=== PATIENT | female | born 1950 | race Caucasian/White ===

== ENCOUNTER 2017-06-13 15:16 | Emergency (ER) | payer MEDICARE, OTHER ==
[2017-06-13 16:05] VITALS: BP 145/59
--- NOTE | 2017-06-13 16:31 | UC ---
Hand/Wrist HPI - HPI Summary HPI Summary: Patient presents with complaints of nontraumatic right wrist pain onset two days. She states the pain occurs when she moves her thumb or flexes or extends the wrist. She states that they is some swelling on the inside of the wrist. She denies any repetitive movements, injury, trauma, warmth, fever of chills. She describes the pain as aching and more sharp with movement. States the pain radiates up the forearm at times as well. Denies any numbnes or tingling. - History Of Current Complaint Hx Obtained From: Patient ?: No Onset/Duration: Gradual Onset, Lasting Days Severity Currently: Moderate Character Of Pain: Sharp, Aching Aggravating Factor(s): Movement, Flexion, Extension Alleviating Factor(s): Rest Associated Signs And Symptoms: Positive: Swelling - Risk Factors Compartment Syndrome Risk Factors: Pain <Essence Bah - Last Filed: 06/13/17 16:36> <Heather Jane - Last Filed: 06/13/17 16:57> - History Of Current Complaint Chief Complaint: UCUpperExtremity Stated Complaint: WRIST INJURY Time Seen by Provider: 06/13/17 16:12 - Allergies/Home Medications Allergies/Adverse Reactions: Allergies Allergy/AdvReac Type Severity Reaction Status Date / Time No Known Allergies Allergy Verified 06/13/17 16:05 PMH/Surg Hx/FS Hx/Imm Hx Previously Healthy: Yes - Surgical History Surgical History: Yes Surgery Procedure, Year, and Place: TOTAL HYSTERECTOMY, CARDIAC STENTS x3, csection - Family History Known Family History: Positive: None - Social History Occupation: Retired Lives: Alone Alcohol Use: None Substance Use Type: None Smoking Status (MU): Light Every Day Tobacco Smoker - Immunization History Most Recent Influenza Vaccination: 2012 Most Recent Tetanus Shot: 2004 Most Recent Pneumonia Vaccination: 2012 <Essence Bah - Last Filed: 06/13/17 16:36> Review of Systems Constitutional: Negative Skin: Negative Eyes: Negative ENT: Negative Respiratory: Negative Cardiovascular: Negative Gastrointestinal: Negative Genitourinary: Negative Motor: Negative Neurovascular: Negative Musculoskeletal: Arthralgia, Decreased ROM, Edema, Myalgia Neurological: Negative Psychological: Negative All Other Systems Reviewed And Are Negative: Yes <Essence Bah - Last Filed: 06/13/17 16:36> Physical Exam Triage Information Reviewed: Yes Appearance: Well-Appearing Vital Signs: Initial Vital Signs Temp 97.5 F 06/13/17 16:01 Pulse 61 06/13/17 16:01 Resp 12 06/13/17 16:01 BP 145/59 06/13/17 16:01 Pulse Ox 100 06/13/17 16:01 Vital Signs Reviewed: Yes Eye Exam: Normal ENT Exam: Normal Neck exam: Normal Neck: Positive: 1 Respiratory Exam: Normal Cardiovascular Exam: Normal Abdominal Exam: Normal Musculoskeletal Exam: Normal - right wrist inspection, soft tissue swelling noted medal distal radius. Palpation, tenderness on palpation over the medial Musculoskeletal: Positive: Strength Limited @, ROM Limited @, Edema @, Other: - inspection, soft tissue swelling noted over the distal radial head, tenderness on palpation overthe extensor pollicis brevis tendon and the abductor pollicis longus tendon. rom intact with reproducible pain with flexion, extension, negative snuff box. vascular + radial and ulnar pulses, cap refill less than three seconds. neuro, no dificits. Neurological Exam: Normal Psychological Exam: Normal Skin Exam: Normal <Essence Bah - Last Filed: 06/13/17 16:36> Vital Signs: Initial Vital Signs Temp 97.5 F 06/13/17 16:01 Pulse 61 06/13/17 16:01 Resp 12 06/13/17 16:01 BP 145/59 06/13/17 16:01 Pulse Ox 100 06/13/17 16:01 <Heather Jane - Last Filed: 06/13/17 16:57> Hand/Wrist Course/Dx - Course Course Of Treatment: Patient presents witn complaints of nontraumatic right wrist pain, swelling and tenderness over the tendons consistent with dequavain tendonitis. Patient had no injury or trauma and I did not feel xrays were indicated and did discuss options with the patient and she was in agreement. I do not feel the patient has a septic joint, it is not warm to touch and the patient does not have a fever. I did rx medrol dose pack, and placed her in a thumb spica. I also recommend that if her symptoms do not improve in two days, and if for any reason her symtpoms get worse to see the orthopedist or return to the clinic for re-evaluation. - Differential Dx/Diagnosis Differential Diagnosis/HQI/PQRI: Tendonitis Provider Diagnoses: tendonitis <Essence Bah - Last Filed: 06/13/17 16:36> Discharge <Essence Bah - Last Filed: 06/13/17 16:36> <Heather Jane - Last Filed: 06/13/17 16:57> - Discharge Plan Condition: Stable Disposition: HOME Prescriptions: Methylprednisolone [Medrol Dosepak 4 MG*] 0 mg PO .SEE ANA INSTRUCTION #1 tab Patient Education Materials: Tendinitis (ED) Referrals: Dany Hunter MD [Medical Doctor] - Maame Montaño NP [Primary Care Provider] - Additional Instructions: You need to call the orthopedist and follow up in two days if your symptoms persist beyond two days, sooner if your symptoms get worse. Attestation Statement User Type: Provider - I was available for consult. This patient was seen by the [facility]. The patient was not presented to, seen by, or examined by me. -Marina <Heather Jane - Last Filed: 06/13/17 16:57>
== END 2017-06-13 16:51 | disposition home or self-care (01) ==
LOC: UCEAST 15:16
DX: M77.9 Enthesopathy, unspecified (principal); F17.200 Nicotine dependence, unspecified, uncomplicated
CPT/HCPCS: 99213; G0463

== ENCOUNTER 2018-12-18 19:37 | Emergency (ER) | payer OTHER, MEDICARE ==
[2018-12-18 20:54] LABS: ABS Basophils 0.1 10^3/ul (0-0.2); ABS Eosinophils 0.4 10^3/ul (0-0.6); ABS Lymphocytes 3.3 10^3/ul (1.0-4.8); ABS Monocytes 1.2 10^3/ul (0-0.8); Eosinophil % 2.9 %; Hematocrit 44 % (35-47); Hemoglobin 15.2 g/dL (12.0-16.0); Lymphocyte % 25.5 %; Mean Corpuscular HGB Conc 34 g/dL (31-36); Mean Corpuscular Hemoglobin 33 pg (27-31); Mean Corpuscular Volume 95 fL (80-97); Mean Platelet Volume 7.5 fL (7.4-10.4); Platelet Count 278 10^3/uL (150-450); Red Blood Count 4.65 10^6 /uL (3.70-4.87); Red Cell Distribution Width 15 % (10.5-15); White Blood Count 13.1 10^3/uL (3.5-10.8)
[2018-12-18 21:11] LABS: Albumin 4.4 g/dL (3.2-5.2); Albumin/Globulin Ratio 1.5 (1-3); BUN/Creatinine Ratio 17.4 (8-20); Calcium 9.6 mg/dL (8.6-10.3); EGFR African American 79.9 (>60); Total Bilirubin 0.5 mg/dL (0.2-1.0); Total Protein 7.4 g/dL (6.4-8.9)
[2018-12-18 21:53] LABS: Potassium 3.6 mmol/L (3.5-5.0)
[2018-12-18 22:15] LABS: Rapid Strep Molecular Negative (Negative)
[2018-12-18] MEDS ORDERED: Benzonatate CAP* 100 MG PO ONE (22:24)
[2018-12-18 22:25] LABS: Influenza A Molecular NEGATIVE (Negative); Influenza B Molecular NEGATIVE (Negative)
[2018-12-18] MEDS ORDERED: Azithromycin TAB* 250 MG PO ONE (22:27)
--- NOTE | 2018-12-18 22:28 | ED ---
Throat Pain/Nasal Congestion - HPI Summary HPI Summary: Patient complains of sore throat, bilateral ear pain, cough, shortness of breath after coughing spell, body aches 2 weeks. Patient states she took Tylenol this a.m. Denies fever, headache, neck stiffness, CP, N/V/D, abdominal pain, change in urine, change in BM, nasal congestion. She on Plavix. - History of Current Complaint Chief Complaint: EDGeneral Time Seen by Provider: 12/18/18 21:42 Hx Obtained From: Patient Onset/Duration: Gradual Onset, Lasting Weeks Severity: Moderate Associated Signs And Symptoms: Positive: Negative Cough: Nonproductive - Allergies/Home Medications Allergies/Adverse Reactions: Allergies Allergy/AdvReac Type Severity Reaction Status Date / Time No Known Allergies Allergy Verified 12/18/18 19:44 PMH/Surg Hx/FS Hx/Imm Hx Endocrine/Hematology History: Denies: Hx Diabetes, Hx Thyroid Disease Cardiovascular History: Reports: Hx Angina, Hx Coronary Artery Disease, Hx Hypercholesterolemia, Hx Hypertension, Hx Rheumatic Fever Denies: Hx Congestive Heart Failure, Hx Myocardial Infarction, Hx Valvular Heart Disease, Other Cardiovascular Problems/Disorders Respiratory History: Reports: Hx Chronic Bronchitis, Other Respiratory Problems/ Disorders - smoker Denies: Hx Asthma, Hx Chronic Obstructive Pulmonary Disease (COPD) GI History: Reports: Hx Gastroesophageal Reflux Disease Denies: Other GI Disorders History: Denies: Hx Renal Disease, Other Problems/Disorders Musculoskeletal History: Reports: Hx Osteoporosis Sensory History: Reports: Hx Contacts or Glasses Opthamlomology History: Reports: Hx Contacts or Glasses - Cancer History Hx Chemotherapy: No Hx Radiation Therapy: No - Surgical History Surgery Procedure, Year, and Place: TOTAL HYSTERECTOMY, CARDIAC STENTS x3, csection Hx Anesthesia Reactions: No - Immunization History Date of Tetanus Vaccine: <10yrs Date of Influenza Vaccine: Fall 2012 Infectious Disease History: No Infectious Disease History: Denies: Traveled Outside the [place] in Last 30 Days - Family History Known Family History: Positive: None - Social History Alcohol Use: None Substance Use Type: Reports: None Smoking Status (MU): Light Every Day Tobacco Smoker Review of Systems Constitutional: Negative Eyes: Negative Positive: Sore Throat, Ear Ache Cardiovascular: Negative Positive: Cough Gastrointestinal: Negative Genitourinary: Negative Positive: Myalgia Skin: Negative Neurological: Negative Psychological: Normal All Other Systems Reviewed And Are Negative: Yes Physical Exam - Summary Physical Exam Summary: ENT exam unremarkable. Lung sounds clear to auscultation bilaterally. RRR. Abdomen soft nontender. Triage Information Reviewed: Yes Vital Signs On Initial Exam: Initial Vitals Temp Pulse Resp BP Pulse Ox 98.8 F 52 18 186/76 96 12/18/18 19:42 12/18/18 19:42 12/18/18 19:42 12/18/18 19:42 12/18/18 19:42 Vital Signs Reviewed: Yes Appearance: Positive: Well-Appearing Skin: Positive: Warm Head/Face: Positive: Normal Head/Face Inspection Eyes: Positive: Normal ENT: Positive: Normal ENT inspection Neck: Positive: Supple Respiratory/Lung Sounds: Positive: Clear to Auscultation Cardiovascular: Positive: Normal Abdomen Description: Positive: Nontender Musculoskeletal: Positive: Normal Neurological: Positive: Normal Psychiatric: Positive: Normal AVPU Assessment: Alert - Calvin Coma Scale Best Eye Response: 4 - Spontaneous Best Motor Response: 6 - Obeys Commands Best Verbal Response: 5 - Oriented Coma Scale Total: 15 Diagnostics - Vital Signs Vital Signs Temp Pulse Resp BP Pulse Ox 12/18/18 22:16 98.8 F 56 22 163/60 98 12/18/18 19:42 98.8 F 52 18 186/76 96 - Laboratory Lab Results: Lab Results 12/18/18 12/18/18 12/18/18 Range/Units 20:46 20:46 Unknown WBC 13.1 H (3.5-10.8) 10^3/uL RBC 4.65 (3.70-4.87) 10^6 /uL Hgb 15.2 (12.0-16.0) g/dL Hct 44 (35-47) % MCV 95 (80-97) fL MCH 33 H (27-31) pg MCHC 34 (31-36) g/dL RDW 15 (10.5-15) % Plt Count 278 (150-450) 10^3/uL MPV 7.5 (7.4-10.4) fL Neut % (Auto) 61.4 % Lymph % (Auto) 25.5 % [place] % (Auto) 9.2 % Eos % (Auto) 2.9 % Baso % (Auto) 1.0 % Absolute Neuts (auto) 8.0 H (1.5-7.7) 10^3/ul Absolute Lymphs (auto) 3.3 (1.0-4.8) 10^3/ul Absolute Monos (auto) 1.2 H (0-0.8) 10^3/ul Absolute Eos (auto) 0.4 (0-0.6) 10^3/ul Absolute Basos (auto) 0.1 (0-0.2) 10^3/ul Absolute Nucleated RBC 0.0 10^3/ul Nucleated RBC % 0.0 Sodium 137 (135-145) mmol/L Potassium 3.6 (3.5-5.0) mmol/L Chloride 102 (101-111) mmol/L Carbon Dioxide 27 (22-32) mmol/L Anion Gap 8 (2-11) mmol/L BUN 15 (6-24) mg/dL Creatinine 0.86 (0.51-0.95) mg/dL Est GFR ( Amer) 79.9 (>60) Est GFR (Non-Af Amer) 66.0 (>60) BUN/Creatinine Ratio 17.4 (8-20) Glucose 94 (70-100) mg/dL Calcium 9.6 (8.6-10.3) mg/dL Total Bilirubin 0.50 (0.2-1.0) mg/dL AST 17 (13-39) U/L ALT 15 (7-52) U/L Alkaline Phosphatase 94 (34-104) U/L Total Protein 7.4 (6.4-8.9) g/dL Albumin 4.4 (3.2-5.2) g/dL Globulin 3.0 (2-4) g/dL Albumin/Globulin Ratio 1.5 (1-3) Influenza A (Rapid) Negative (Negative) Influenza B (Rapid) Negative (Negative) Group A Strep Rapid (Negative) 12/18/18 Range/Units Unknown WBC (3.5-10.8) 10^3/uL RBC (3.70-4.87) 10^6 /uL Hgb (12.0-16.0) g/dL Hct (35-47) % MCV (80-97) fL MCH (27-31) pg MCHC (31-36) g/dL RDW (10.5-15) % Plt Count (150-450) 10^3/uL MPV (7.4-10.4) fL Neut % (Auto) % Lymph % (Auto) % [place] % (Auto) % Eos % (Auto) % Baso % (Auto) % Absolute Neuts (auto) (1.5-7.7) 10^3/ul Absolute Lymphs (auto) (1.0-4.8) 10^3/ul Absolute Monos (auto) (0-0.8) 10^3/ul Absolute Eos (auto) (0-0.6) 10^3/ul Absolute Basos (auto) (0-0.2) 10^3/ul Absolute Nucleated RBC 10^3/ul Nucleated RBC % Sodium (135-145) mmol/L Potassium (3.5-5.0) mmol/L Chloride (101-111) mmol/L Carbon Dioxide (22-32) mmol/L Anion Gap (2-11) mmol/L BUN (6-24) mg/dL Creatinine (0.51-0.95) mg/dL Est GFR ( Amer) (>60) Est GFR (Non-Af Amer) (>60) BUN/Creatinine Ratio (8-20) Glucose (70-100) mg/dL Calcium (8.6-10.3) mg/dL Total Bilirubin (0.2-1.0) mg/dL AST (13-39) U/L ALT (7-52) U/L Alkaline Phosphatase (34-104) U/L Total Protein (6.4-8.9) g/dL Albumin (3.2-5.2) g/dL Globulin (2-4) g/dL Albumin/Globulin Ratio (1-3) Influenza A (Rapid) (Negative) Influenza B (Rapid) (Negative) Group A Strep Rapid Negative (Negative) Result Diagrams: 12/18/18 20:46 12/18/18 20:46 Lab Statement: Any lab studies that have been ordered have been reviewed, and results considered in the medical decision making process. EENT Course/Dx - Course Course Of Treatment: Patient complains of sore throat, bilateral ear pain, cough , shortness of breath after coughing spell, body aches 2 weeks. Patient states she took Tylenol this a.m. Denies fever, headache, neck stiffness, CP, N /V/D, abdominal pain, change in urine, change in BM, nasal congestion. She on Plavix. Physical exam: ENT exam unremarkable. Lung sounds clear to auscultation bilaterally. RRR. Abdomen soft nontender. Vital signs within normal limits. WBC 13.1. Labs otherwise unremarkable. Chest x-ray negative for acute process. Flu negative. Strep negative. Patient likely has viral syndrome, but patient has had symptoms for 2 weeks. Trial of antibiotics to prevent secondary bacterial infection. - Diagnoses Provider Diagnoses: Respiratory tract infection Discharge - Sign-Out/Discharge Documenting (check all that apply): Patient Departure Patient Received Moderate/Deep Sedation with Procedure: No - Discharge Plan Condition: Stable Disposition: HOME Prescriptions: Azithromycin 250 mg PO DAILY 4 Days #4 tablet Benzonatate CAP* [Tessalon 100 MG CAP*] 200 mg PO TID 6 Days #40 cap Patient Education Materials: Upper Respiratory Infection (ED) Referrals: Maame Montaño [employer] CHUTE OPERATOR [Primary Care Provider] - Additional Instructions: Take antibiotics as directed. Take cough medicine as prescribed. Take Tylenol or ibuprofen for body aches. Follow-up with primary care. Return to the ED for any new or worsening symptoms. - Billing Disposition and Condition Condition: STABLE Disposition: Home
[2018-12-18 22:36] VITALS: BP 161/60
== END 2018-12-18 22:35 | disposition home or self-care (01) ==
LOC: ED 19:37
DX: J98.8 Other specified respiratory disorders (principal); I10 Essential (primary) hypertension; I25.10 Atherosclerotic heart disease of native coronary artery without angina pectoris; J42 Unspecified chronic bronchitis; K21.9 Gastro-esophageal reflux disease without esophagitis; E78.00 Pure hypercholesterolemia, unspecified; M81.0 Age-related osteoporosis without current pathological fracture; F17.210 Nicotine dependence, cigarettes, uncomplicated; Z95.5 Presence of coronary angioplasty implant and graft
CPT/HCPCS: 36415; 71046; 80053; 85025; 87651; 99283; A9270-GY

== ENCOUNTER 2019-02-04 17:19 | Observation (INO) | payer OTHER, MEDICARE ==
[2019-02-04 18:02] LABS: ABS Basophils 0.1 10^3/ul (0-0.2); ABS Eosinophils 0.3 10^3/ul (0-0.6); ABS Lymphocytes 3.7 10^3/ul (1.0-4.8); ABS Monocytes 0.9 10^3/ul (0-0.8); ABS Neutrophils 7.1 10^3/ul (1.5-7.7); Eosinophil % 2.3 %; Hematocrit 46 % (35-47); Hemoglobin 15.3 g/dL (12.0-16.0); Lymphocyte % 30.8 %; Mean Corpuscular HGB Conc 33 g/dL (31-36); Mean Corpuscular Hemoglobin 32 pg (27-31); Mean Corpuscular Volume 96 fL (80-97); Mean Platelet Volume 7.3 fL (7.4-10.4); Nucleated Red Blood Cells % 0.1; Platelet Count 270 10^3/uL (150-450); Red Cell Distribution Width 15 % (10-15)
[2019-02-04 18:06] LABS: INR 0.98 (0.82-1.09)
[2019-02-04 18:20] LABS: Albumin 4.2 g/dL (3.2-5.2); Albumin/Globulin Ratio 1.5 (1-3); BUN/Creatinine Ratio 25.9 (8-20); Calcium 9.5 mg/dL (8.6-10.3); EGFR African American 85.6 (>60); EGFR Non-African American 70.7 (>60); Globulin 2.8 g/dL (2-4); Potassium 3.6 mmol/L (3.5-5.0); Total Bilirubin 0.4 mg/dL (0.2-1.0)
[2019-02-04] MEDS ORDERED: Iohexol 350* (CONTRAST) 500 ML MDV IV ONE (18:37)
[2019-02-04] MEDS ORDERED: Morphine 4 MG/ML VIAL (1 ml) 4 MG/ML VIAL IV ONE (20:07)
[2019-02-04] MEDS ORDERED: NS 0.9% 1000 ML** 1,000 ML IV ONE (20:07)
[2019-02-04] MEDS ORDERED: hydrALAZINE IV* 20 MG/ML VIAL IV SLOW PU ONE (20:19)
--- NOTE | 2019-02-04 20:44 | ED ---
HPI Chest Pain - HPI Summary HPI Summary: Patient complains of left-sided chest pain radiating to her back between her shoulder blades, elevated blood pressure up to SBP 200, severe headache, mild exertional shortness of breath starting today. Chest pain described as intermittent, random onset, not related to exertion. Active chest pain here in ED rated 2/10. History of headaches, states this headache is same as usual, but not responding to Tylenol. Headaches usually relieved with Tylenol. Headache described as intermittent. Denies fever, cough, sore throat, neck stiffness, N/V/D, abdominal pain, change in urine, change in BM. Patient states recent stress test [address] Gonzales. Patient unaware of stress test results. Patient on Plavix. Medical history is angina, HTN, HDL, factor V. History of 3 cardiac stents placed in 2009. Positive smoker, denies EtOH, denies energy drinks, excessive coffee or recreational drug use. - History of Current Complaint Chief Complaint: EDChestPainROMI Time Seen by Provider: 02/04/19 17:47 Hx Obtained From: Patient Onset/Duration: Started Hours Ago Timing: Intermittent Current Severity: Mild Pain Intensity: 2 Pain Scale Used: 0-10 Numeric Chest Pain Location: Left Anterior Chest Pain Radiates: Yes Chest Pain Radiates To:: Back Character: Pressure/Squeezing Aggravating Factor(s): Nothing Alleviating Factor(s): Nothing Associated Signs and Symptoms: Positive: Chest Pain, Shortness of Breath, Back Pain - Allergy/Home Medications Allergies/Adverse Reactions: Allergies Allergy/AdvReac Type Severity Reaction Status Date / Time No Known Allergies Allergy Verified 02/04/19 17:25 Home Medications: Home Medications Lisinopril/HCTZ (NF) 1 tab PO DAILY 02/04/19 [History Confirmed 02/04/19] Metoprolol Tartrate 25 mg PO BID 02/04/19 [History Confirmed 02/04/19] Nitrolingual 0.4 mg PO SEE INSTRUCTIONS PRN 02/04/19 [History Confirmed 02/04/19 ] PMH/Surg Hx/FS Hx/Imm Hx Endocrine/Hematology History: Denies: Hx Diabetes, Hx Thyroid Disease Cardiovascular History: Reports: Hx Angina, Hx Coronary Artery Disease, Hx Hypercholesterolemia, Hx Hypertension, Hx Rheumatic Fever Denies: Hx Congestive Heart Failure, Hx Myocardial Infarction, Hx Valvular Heart Disease, Other Cardiovascular Problems/Disorders Respiratory History: Reports: Hx Chronic Bronchitis, Other Respiratory Problems/ Disorders - smoker Denies: Hx Asthma, Hx Chronic Obstructive Pulmonary Disease (COPD) GI History: Reports: Hx Gastroesophageal Reflux Disease Denies: Other GI Disorders History: Denies: Hx Renal Disease, Other Problems/Disorders Musculoskeletal History: Reports: Hx Osteoporosis Sensory History: Reports: Hx Contacts or Glasses Opthamlomology History: Reports: Hx Contacts or Glasses EENT History: Denies: Hx Deafness Neurological History: Reports: Hx Headaches Psychiatric History: Denies: Hx Autism - Cancer History Hx Chemotherapy: No Hx Radiation Therapy: No - Surgical History Surgery Procedure, Year, and Place: TOTAL HYSTERECTOMY, CARDIAC STENTS x3, csection Hx Anesthesia Reactions: No - Immunization History Date of Tetanus Vaccine: <10yrs Date of Influenza Vaccine: Fall 2012 Infectious Disease History: No Infectious Disease History: Denies: Traveled Outside the [place] in Last 30 Days - Family History Known Family History: Positive: None - Social History Alcohol Use: None Substance Use Type: Reports: None Smoking Status (MU): Light Every Day Tobacco Smoker Review of Systems Constitutional: Negative Eyes: Negative Positive: Chest Pain Positive: Shortness Of Breath Gastrointestinal: Negative Genitourinary: Negative Musculoskeletal: Negative Skin: Negative Positive: Headache Psychological: Normal All Other Systems Reviewed And Are Negative: Yes Physical Exam - Summary Physical Exam Summary: Neuro exam normal. Chest pain not reproducible. Lung sounds clear to auscultation bilaterally. Regular rate and rhythm. Abdomen soft nontender. No peripheral edema. Triage Information Reviewed: Yes Vital Signs On Initial Exam: Initial Vitals Temp Pulse Resp BP Pulse Ox 98.2 F 63 16 230/114 94 02/04/19 17:22 02/04/19 17:22 02/04/19 17:22 02/04/19 17:22 02/04/19 17:22 Vital Signs Reviewed: Yes Appearance: Positive: Well-Appearing, No Pain Distress Skin: Positive: Warm Head/Face: Positive: Normal Head/Face Inspection Eyes: Positive: Normal ENT: Positive: Normal ENT inspection Neck: Positive: Supple Respiratory/Lung Sounds: Positive: Clear to Auscultation Cardiovascular: Positive: Normal Abdomen Description: Positive: Nontender Musculoskeletal: Positive: Normal Neurological: Positive: Normal Psychiatric: Positive: Normal AVPU Assessment: Alert - [place] Coma Scale Best Eye Response: 4 - Spontaneous Best Motor Response: 6 - Obeys Commands Best Verbal Response: 5 - Oriented Coma Scale Total: 15 Diagnostics - Vital Signs Vital Signs Temp Pulse Resp BP Pulse Ox 02/04/19 20:00 56 16 91 02/04/19 19:49 54 21 204/88 95 02/04/19 19:19 51 191/74 95 02/04/19 19:00 15 02/04/19 18:19 56 17 209/98 95 02/04/19 18:00 54 21 92 02/04/19 17:50 53 203/83 93 02/04/19 17:49 53 94 02/04/19 17:22 98.2 F 63 16 230/114 94 - Laboratory Lab Results: Lab Results 02/04/19 02/04/19 02/04/19 Range/Units 17:47 17:47 17:47 WBC 12.0 H (3.5-10.8) 10^3/uL RBC 4.80 (3.70-4.87) 10^6 /uL Hgb 15.3 (12.0-16.0) g/dL Hct 46 (35-47) % MCV 96 (80-97) fL MCH 32 H (27-31) pg MCHC 33 (31-36) g/dL RDW 15 (10-15) % Plt Count 270 (150-450) 10^3/uL MPV 7.3 L (7.4-10.4) fL Neut % (Auto) 58.7 % Lymph % (Auto) 30.8 % [place] % (Auto) 7.4 % Eos % (Auto) 2.3 % Baso % (Auto) 0.8 % Absolute Neuts (auto) 7.1 (1.5-7.7) 10^3/ul Absolute Lymphs (auto) 3.7 (1.0-4.8) 10^3/ul Absolute Monos (auto) 0.9 H (0-0.8) 10^3/ul Absolute Eos (auto) 0.3 (0-0.6) 10^3/ul Absolute Basos (auto) 0.1 (0-0.2) 10^3/ul Absolute Nucleated RBC 0.0 10^3/ul Nucleated RBC % 0.1 INR (Anticoag Therapy) 0.98 (0.82-1.09) Sodium 137 (135-145) mmol/L Potassium 3.6 (3.5-5.0) mmol/L Chloride 105 (101-111) mmol/L Carbon Dioxide 23 (22-32) mmol/L Anion Gap 9 (2-11) mmol/L BUN 21 (6-24) mg/dL Creatinine 0.81 (0.51-0.95) mg/dL Est GFR ( Amer) 85.6 (>60) Est GFR (Non-Af Amer) 70.7 (>60) BUN/Creatinine Ratio 25.9 H (8-20) Glucose 95 (70-100) mg/dL Calcium 9.5 (8.6-10.3) mg/dL Total Bilirubin 0.40 (0.2-1.0) mg/dL AST 15 (13-39) U/L ALT 17 (7-52) U/L Alkaline Phosphatase 83 (34-104) U/L Troponin I 0.00 (<0.04) ng/mL Total Protein 7.0 (6.4-8.9) g/dL Albumin 4.2 (3.2-5.2) g/dL Globulin 2.8 (2-4) g/dL Albumin/Globulin Ratio 1.5 (1-3) Result Diagrams: 02/05/19 06:08 02/05/19 06:08 Lab Statement: Any lab studies that have been ordered have been reviewed, and results considered in the medical decision making process. Chest Pain Course/Dx - Course Course Of Treatment: Patient complains of left-sided chest pain radiating to her back between her shoulder blades, elevated blood pressure up to SBP 200, severe headache, mild exertional shortness of breath starting today. Chest pain described as intermittent, random onset, not related to exertion. Active chest pain here in ED rated 2/10. History of headaches, states this headache is same as usual, but not responding to Tylenol. Headaches usually relieved with Tylenol. Headache described as intermittent. Denies fever, cough, sore throat, neck stiffness, N/V/D, abdominal pain, change in urine, change in BM. Patient states recent stress test [address] Gonzales. Patient unaware of stress test results. Patient on Plavix. Medical history is angina, HTN, HDL, factor V. History of 3 cardiac stents placed in 2009. Positive smoker, denies EtOH, denies energy drinks, excessive coffee or recreational drug use. Physical exam:Neuro exam normal. Chest pain not reproducible. Lung sounds clear to auscultation bilaterally. Regular rate and rhythm. Abdomen soft nontender. No peripheral edema. Patient took aspirin prior to arrival. Refused morphine here in the ED. Bradycardic. History of same. Elevated blood pressure up to 230 SBP. Vital signs otherwise within normal limits. WBC 12. BUN/creatinine ratio 25. Labs otherwise unremarkable. EKG sinus bradycardia. Chest x-ray unremarkable. CTA chest abdomen and pelvis unremarkable. Discussed patient with consumer credit counselor gas station clerk Dr. Gonzales who recommended admission for blood pressure control. Patient given hydralazine 5 mg and Nitropaste 2 inches here in the ED with minor change in BP. Admitted to hospitalist. - Diagnoses Provider Diagnoses: Chest pain, Hypertension Discharge - Sign-Out/Discharge Documenting (check all that apply): Patient Departure All imaging exams completed and their final reports reviewed: Yes Patient Received Moderate/Deep Sedation with Procedure: No - Discharge Plan Condition: Stable Disposition: ADMITTED TO [facility] - Billing Disposition and Condition Condition: STABLE Disposition: Admitted to [facility] - Attestation Statements Scribe Documentation Reviewed: Yes
[2019-02-04] MEDS ORDERED: Aspirin 81 mg CHEW TAB* 81 MG TAB.CHEW PO ONE (21:15)
[2019-02-04] MEDS ORDERED: Nitro 2% OINT* (Nitroglycerin) 1 INCH/PAK PAK TOPICAL ONE (21:15)
[2019-02-04] MEDS ORDERED: Aspirin 81 mg CHEW TAB* 81 MG TAB.CHEW PO PRN (21:38)
[2019-02-04] MEDS ORDERED: Al Hydrox/Mg Hydrox/Simet LIQ* 30 ML UDC PO PRN (21:41)
[2019-02-04] MEDS ORDERED: Morphine INJ* 2 MG/ML 1 ML SYRINGE (TWO MG - NEW SYRINGE VERSION) IV PRN (21:41)
[2019-02-04] MEDS ORDERED: Senna TAB PO PRN (21:41)
[2019-02-04] MEDS ORDERED: hydrALAZINE IV* 20 MG/ML VIAL IV SLOW PU PRN (21:45)
[2019-02-04] MEDS ORDERED: ALPRAZolam TAB* 0.25 MG PO ONE (22:08)
[2019-02-04] MEDS ORDERED: amLODIPine TAB* 5 MG PO ONE (22:17)
[2019-02-04] MEDS ORDERED: Ondansetron INJ* 2 MG/ML VIAL IV ONE ×2 (22:23)
[2019-02-04] MEDS ORDERED: Ondansetron ODT TAB* 4 MG PO ONE (22:23)
[2019-02-04] MEDS: Lisinopril TAB* 10 MG PO SCH (23:08)
[2019-02-04] MEDS: Metoprolol Tartrate TAB* 25 MG PO SCH (23:12)
--- NOTE | 2019-02-05 01:47 | HP ---
CC: Dr. Gonzales; Maame Montaño NP * HISTORY AND PHYSICAL: DATE OF ADMISSION: 02/04/19 PRIMARY CARE PROVIDER: Maame Montaño NP INDUSTRIAL MACHINE ASSEMBLER: Dr. Gonzales. CHIEF COMPLAINT: Chest pain. HISTORY OF PRESENT ILLNESS: Estella Robison is a 68-year-old female with history of carotid disease, status post 3 stents in 2010, who also has history of hypertension, dyslipidemia, and tobacco use, who presented to the hospital complaining of headache and substernal chest pain. The patient stated that headache has been ongoing for the past 2 days. She stated that it is frontal and it is the usual headache for her. The patient stated that she usually gets a frontal headache and then she feels sick in her stomach, she vomits, and usually the headache goes away. This time around, she had had headache for 2 days. When she was in the ED now, she became nauseated. Today, in the middle of the day, when she was sitting down, she noted that she had chest pain substernally across her chest radiating to the back and radiating to bilateral shoulders. She still has discomfort at this point. When in the ED, she was evaluated for cardiac problems and her troponins were negative. She continues to have very high blood pressures in the 200s. She is going to be placed on planned observation with diagnoses of chest pain and uncontrolled hypertension. PAST MEDICAL HISTORY: 1. History of carotid disease, status post 3 stents placed into the RCA [place] [address] Doran. 2. Hypertension. 3. History of rheumatic fever at the age of 14. 4. Hypercholesterolemia. 5. Ongoing tobacco use. 6. Gastroesophageal reflux disease. 7. . 8. Osteopenia. 9. Status post hysterectomy and oophorectomy. 10. . MEDICATIONS: At home, include: 1. Nitroglycerin sublingually which the patient took once in her life a long time ago. 2. Lisinopril/hydrochlorothiazide 20/25 one tablet daily. 3. Aspirin 81 mg daily. 4. Metoprolol tartrate 25 mg b.i.d. 5. Lipitor 80 mg daily. 6. Plavix 75 mg daily. ALLERGIES: No known drug allergies. The patient prefers not to use morphine because it makes her sick in the stomach. FAMILY HISTORY: Positive for father who secondary to liver disease but has history of 2 MIs prior to that. Mother with history of [place], in her 60s from heart disease. SOCIAL HISTORY: The patient lives with her male partner. Her surrogate decision making person is her daughter, Dorothy Robison. The patient smokes 4 to 5 cigarettes a day, denies any alcohol or drug use. She works in a convenient store. REVIEW OF SYSTEMS: Please see history of present illness. In addition, at the time of admission, the patient stated that she has good exercise tolerance, that she has had no problems with exertional chest pain in the past. She denies any cough or shortness of breath. She still has the discomfort between her shoulder blades. The discomfort is not pleuritic. She has a frontal headache which she has had in the past. Currently, she rates it at 3/10 in intensity. She has mild nausea. She denies any visual problems and her headache is not unusual for her. She denies any focal neuro deficits. All the remaining 12 systems was reviewed with the patient and was negative. PHYSICAL EXAMINATION GENERAL: The patient is a pleasant 68-year-old female, who is in no acute distress. Alert, awake, and oriented x3. VITAL SIGNS: Blood pressure of 205/77, heart rate of 60 and regular, respiratory rate 25, oxygen saturation 93% on room air, temperature of 98.2. HEENT: Head: Atraumatic, normocephalic. Eyes: Pupils are equal, reactive to light and accommodation. Oropharynx clear. Mucosa moist. NECK: Supple. No JVD, no bruits bilaterally. CARDIOVASCULAR: Regular rate and rhythm. No murmur. RESPIRATORY: Clear to auscultation bilaterally. ABDOMEN: Soft, nontender. Bowel sounds are present in all 4 quadrants. EXTREMITIES: There is no edema. Pulses are +2 bilaterally. No clubbing or cyanosis. NEUROLOGIC: Speech clear. Cranial nerves II through XII grossly intact. Motor strength is 5/5 bilaterally. PSYCHIATRIC: Alert and oriented x3. No evidence of anxiety or depression. DIAGNOSTIC STUDIES/LAB DATA: Shows white blood cell count of 12.0, hemoglobin of 15.3, hematocrit of 46, and platelets of 270. Sodium 137, potassium 3.6, chloride 105, carbon dioxide 23, BUN 21, creatinine 0.81. Liver function tests unremarkable. Troponin is 0. The patient's CT angiogram of chest, abdomen, and pelvis, impression: "No acute findings of the chest. No thoracic aortic aneurysm or dissection. Moderate aortic calcified plaque. Coronary artery disease. Septal thickening suggesting mild interstitial edema. Subcentimeter paratracheal and subcarinal lymph nodes identified. Slightly more prominent when compared to prior study. No acute findings of the abdomen or pelvis. Irregular atherosclerotic plaque of the abdominal aorta with areas of fusiform with annular dilatation. However, no evidence of abdominal aortic dissection or aneurysm. Status post hysterectomy. Right renal cyst." ASSESSMENT AND PLAN: 1. I suggest the patient's headache is associated with hypertension. She has not had a CT of the head yet and due to her extreme hypertension, I will obtain a CT of the head to evaluate further. The patient is rather difficult to treat for her pain since she refuses to take any narcotics and due to her chest pain, she is not a candidate for nonsteroidal antiinflammatory medications. At this point, she agreed to take a small dose of Xanax with Tylenol. We will await CT of the head. 2. In regards to the patient's hypertension, the patient is going to be treated with a dose of Norvasc, p.o. hydralazine, IV p.r.n. She also received her nightly dose of metoprolol and we will continue observing. 3. In regards to the patient's chest pain, CT angiogram ruled out aortic aneurysm. If the patient's blood pressure is controlled in the morning, she can undergo a treadmill stress test. 4. In regards to the patient's code status, the patient's code status is full. 5. For DVT prophylaxis, the patient is going to be placed on heparin subcutaneously. TIME SPENT: Please note that approximately 65 minutes was spent on admission of this patient, more than half of that time was spent [id number] with the patient during the interview and physical exam. [id number]/[facility] #: [id number] [place]
[2019-02-05] MEDS: Acetaminophen TAB* 325 MG PO PRN ×2 (06:45→10:53)
[2019-02-05 07:03] LABS: ABS Basophils 0.1 10^3/ul (0-0.2); ABS Eosinophils 0.3 10^3/ul (0-0.6); ABS Monocytes 0.8 10^3/ul (0-0.8); ABS Neutrophils 5.6 10^3/ul (1.5-7.7); Eosinophil % 2.6 %; Hematocrit 44 % (35-47); Hemoglobin 15.1 g/dL (12.0-16.0); Lymphocyte % 30.6 %; Mean Corpuscular HGB Conc 35 g/dL (31-36); Mean Corpuscular Hemoglobin 33 pg (27-31); Mean Corpuscular Volume 95 fL (80-97); Mean Platelet Volume 7.8 fL (7.4-10.4); Nucleated Red Blood Cells % 0.1; Platelet Count 246 10^3/uL (150-450); Red Blood Count 4.57 10^6 /uL (3.70-4.87); Red Cell Distribution Width 15 % (10-15); White Blood Count 9.7 10^3/uL (3.5-10.8)
[2019-02-05 07:17] LABS: BUN/Creatinine Ratio 20.7 (8-20); EGFR African American 84.4 (>60); EGFR Non-African American 69.7 (>60); Potassium 3.7 mmol/L (3.5-5.0)
[2019-02-05] MEDS ORDERED: Clopidogrel TAB* 75 MG PO SCH (09:00)
[2019-02-05] MEDS: Lisinopril TAB* 10 MG PO SCH (10:16)
[2019-02-05] MEDS ORDERED: Ibuprofen TAB* 400 MG PO ONE (10:47)
[2019-02-05] MEDS: Metoprolol Tartrate TAB* 25 MG PO SCH (11:01)
[2019-02-05] MEDS ORDERED: Ondansetron INJ* 2 MG/ML VIAL IV PRN (11:02)
[2019-02-05] MEDS ORDERED: Regadenoson* 0.4 MG/5 ML SYRINGE ONE (13:18)
[2019-02-05] MEDS ORDERED: Ondansetron INJ* 2 MG/ML VIAL ONE (13:18)
[2019-02-05 15:38] VITALS: BP 153/58
[2019-02-05] MEDS ORDERED: Atorvastatin* 40 MG TAB PO SCH (21:00)
--- NOTE | 2019-02-05 22:37 | DS ---
CC: Maame Montaño NP * DISCHARGE SUMMARY: DATE OF ADMISSION: 02/04/19 DATE OF DISCHARGE: 02/05/19 PRIMARY CARE PROVIDER: Maame Montaño NP MY ATTENDING FOR TODAY: Dr. Saw Jarrett.* (DICTATED BY TEDDY VALDES NP) CHIEF COMPLAINT: Chest pain. HOSPITAL COURSE: Please refer to admitting H and P by Dr. Polo on 02/04/19, but in short, Ms. Robison is a 68-year-old female with past medical history of hypertension, carotid artery disease, dyslipidemia, tobacco abuse, who states that she has had headache and some substernal chest pain for approximately 24 hours prior to her admission. The patient states that she had this headache that had been getting worse for approximately 2 days and the headache started giving her some nausea and she had some vomiting. She came to the emergency department for evaluation, where she was found to have systolic blood pressures greater than 200 and also with her concomitant chest pain. She was admitted for observation for rule out ACS and uncontrolled hypertension. The patient underwent nuclear stress testing and blood pressure control. Her nuclear stress test was read as low risk. She received adequate blood pressure control with IV hydralazine and also additional p.o. medications. She also had some additional nausea and vomiting, for which she received Zofran. Persistent headache was treated with tylenol and was attributed to nitroglycerine paste; headache improved after removal of paste. Her symptoms have now resolved. Her blood pressure has normalized and the patient is ready for discharge. DISCHARGE DIAGNOSES: 1. Uncontrolled hypertension. 2. Chest pain. SECONDARY DIAGNOSES: 1. History of carotid artery disease. 2. Essential hypertension. 3. Hypercholesterolemia. 4. Tobacco abuse. 5. Gastroesophageal reflux disease. 6. Osteopenia. HOME MEDICATIONS: Include: 1. Nitroglycerin sublingual. 2. Lisinopril and hydrochlorothiazide 20/25 one tablet daily. 3. Aspirin 81 mg daily. 4. Metoprolol tartrate 25 mg p.o. b.i.d. 5. Lipitor 80 mg p.o. daily. 6. Plavix 75 mg daily. New Medication: 1. Norvasc 2.5 mg daily, to start on 02/06/19. REVIEW OF SYSTEMS: On day of discharge, the patient denies any fever, fatigue, or chills. She did have nausea and vomiting earlier in the day, which has now resolved. Denies any abdominal pain. No urinary complaints. No chest pain. No shortness of breath. No arthralgias or myalgias and no further constitutional complaints. PHYSICAL EXAMINATION: Reveals a well-appearing woman in no acute distress. Vital Signs: Blood pressure 134/53, heart beat 57, respiratory rate 16, O2 saturation 94% of room air with a temperature of 97.6. HEENT: The patient is atraumatic, normocephalic. PERRLA. Nonicteric sclerae. Oral mucosa is moist. Tongue is midline. Neck: Supple, nontender. No JVD noted. No carotid bruit auscultated. Cardiovascular: S1, S2 present. Rate is bradycardic. Rhythm is regular. No murmurs, gallops, or rubs noted. Lungs: Clear bilaterally to auscultation with no wheezing, rhonchi, or rales. Abdomen: Soft , nontender, nondistended. Positive bowel sounds in all 4 quadrants. : Deferred. Musculoskeletal: There is no clubbing, no cyanosis. No pedal edema. She has +2 distal pulses palpable. Full range of motion. Steady gait. Neurologic: Grossly intact. Psychiatric: Cooperative and appropriate. DIAGNOSTIC STUDIES/LAB DATA: WBCs 9.7, RBCs 4.57, hemoglobin 15.1, hematocrit 44, platelets 246. Sodium 139, potassium 3.7, chloride 106, CO2 25, BUN 17, creatinine 0.82, GFR 69.7, glucose 100, calcium 9.0. Troponins were negative at 0.00 x3. Liver function within normal limits. Total protein 7.0, albumin 4.2 , globulin 2.8. INR 0.98. Imaging: Chest x-ray was clear with no active cardiopulmonary disease. CT of the chest, abdomen, and pelvis showed no acute findings; some moderate aortic calcified plaque in the thoracic aorta; noted coronary artery disease; a sub- centimeter paratracheal and subcarinal lymph nodes identified, slightly more prominent than when compared to prior imaging. Septal thickening suggests mild interstitial edema, but otherwise no acute findings in the chest. No acute findings in the abdomen or pelvis. She is status post hysterectomy with a small right renal cyst. Nuclear Medicine Imaging: Nuclear images of her stress test show no definite fixed or reversible perfusion defects. EKG shows sinus bradycardia with a rate of 55 to [address] segment changes. DISPOSITION: The patient is being discharged to home in stable condition. All questions were answered. The patient states her understanding of her discharge instructions and followups. FOLLOWUP: The patient is instructed to follow up Dr. Maame Montaño, her primary care provider. At this point, the patient's blood pressure is under better control. Her newest medication is Norvasc. She did respond well to Norvasc in the emergency department. We added low dose. She should check her blood pressure with her primary care provider in the next 2 to 3 days. She was instructed to come back to the hospital. If she feels any increasing headache, dizziness, or other symptoms of increasing blood pressure again, I think the patient should discuss with her PCP the utility of continuing Norvasc or increasing the dose to 5 mg. TIME SPENT: Thirty-five minutes on discharge planning. TEDDY VALDES NP [id number]/[facility] #: [id number] [place]
== END 2019-02-05 16:12 | disposition home or self-care (01) ==
LOC: ED 17:19 → MEDTELE 21:41
PROVIDERS: ADMIT Internal Medicine; ATTEND Internal Medicine
DX: R07.9 Chest pain, unspecified (principal); I10 Essential (primary) hypertension; I25.10 Atherosclerotic heart disease of native coronary artery without angina pectoris; E78.00 Pure hypercholesterolemia, unspecified; F17.210 Nicotine dependence, cigarettes, uncomplicated; K21.9 Gastro-esophageal reflux disease without esophagitis; M85.80 Other specified disorders of bone density and structure, unspecified site; Z79.82 Long term (current) use of aspirin; Z79.899 Other long term (current) drug therapy; R06.02 Shortness of breath; M54.9 Dorsalgia, unspecified; R51 Headache
CPT/HCPCS: 36415; 70450; 71045; 71275; 74174; 78452; 80048; 80053; 84484; 85025; 85610; 93005; 93017; 96374; 96375; 96376; 99285; A9270-GY; A9502; G0378; J0360; J2270; J2405; J2785; Q9967